=== PATIENT | male | born 1990 | race Caucasian/White ===

== ENCOUNTER 2025-05-02 09:13 | Emergency (ER) | payer BC ==
[2025-05-02] MEDS: Ketorolac 30 MG/ML SDV IVPUSH ONE ×2 (09:34→11:04)
[2025-05-02 09:38] LABS: HEMATOCRIT 50.9 % (40.0-54.0); HEMOGLOBIN 17.8 g/dL (14.0-18.0); LYMPHOCYTES PERCENT AUTO 12.1 % (20.5-50.1); MEAN CORPUSCULAR HEMOGLOBIN 29.9 pg (27.0-34.0); MEAN CORPUSCULAR VOLUME 85.5 fL (80-100); NEUTROPHILS PERCENT AUTO 80.7 % (42.2-75.2); PLATELET COUNT,PLT 271 10^3/uL (150-450); RED BLOOD CELL COUNT 5.95 10^6/uL (4.6-6.2); WHITE BLOOD CELL COUNT,WBC 13.9 10^3/uL (5.0-10.0)
[2025-05-02 09:39] LABS: BASOPHILS PERCENT AUTO 0.6 % (0.0-1.0); EOSINOPHILS PERCENT AUTO 0.4 % (1.0-3.0); MONOCYTES PERCENT AUTO 6.2 % (2-8)
[2025-05-02 09:52] LABS: ANION GAP 12.9 mEq/L (7-13); CALCIUM 9.6 mg/dL (8.5-10.1); CREATININE 1.16 mg/dL (0.70-1.30); EST CRCL DRUG DOSING (CG) 96.47 mL/min; POTASSIUM,K 3.9 mmol/L (3.5-5.1)
[2025-05-02] MEDS ORDERED: Naloxone 2 MG/2 ML Syringe IVPUSH PRN (09:58)
[2025-05-02 10:00] LABS: BAND PERCENT MAN 6 %; LYMPHOCYTES PERCENT MAN 15 % (20-50); MONOCYTES PERCENT MAN 6 % (2-8); SEG NEUTROPHILS PERCENT MAN 73 % (42-75)
[2025-05-02] MEDS: HYDROmorphone 1 MG/ML Syringe IVPUSH ONE (10:03)
[2025-05-02] MEDS: Iopamidol 612 MG/ML 100 ML Bottle IVPUSH ONE (10:04)
== END 2025-05-02 11:20 ==
LOC: DL.ED 09:13
DX: K56.609 Unspecified intestinal obstruction, unspecified as to partial versus complete obstruction (principal); K46.0 Unspecified abdominal hernia with obstruction, without gangrene
CPT/HCPCS: 36415; 74177; 80048; 83605; 85025; 96374; 96375; 96376; 99285; J1171; J1885; Q9967

== ENCOUNTER 2025-06-15 11:08 | Emergency (ER) | payer BC ==
[2025-06-15] MEDS: Ketorolac 30 MG/ML SDV IM ONE (11:26)
[2025-06-15 11:42] LABS: PLATELET COUNT,PLT 263 10^3/uL (150-450); RED BLOOD CELL COUNT 5.62 10^6/uL (4.6-6.2); WHITE BLOOD CELL COUNT,WBC 9.5 10^3/uL (5.0-10.0)
[2025-06-15 11:54] LABS: BASOPHILS PERCENT AUTO 0.5 % (0.0-1.0); EOSINOPHILS PERCENT AUTO 1.6 % (1.0-3.0); LYMPHOCYTES PERCENT AUTO 19.7 % (20.5-50.1); MONOCYTES PERCENT AUTO 9.3 % (2-8); NEUTROPHILS PERCENT AUTO 68.9 % (42.2-75.2)
[2025-06-15 12:02] LABS: EOSINOPHILS PERCENT MAN 1 % (1-3); LYMPHOCYTES PERCENT MAN 21 % (20-50); MONOCYTES PERCENT MAN 3 % (2-8); SEG NEUTROPHILS PERCENT MAN 75 % (42-75)
[2025-06-15 12:03] LABS: A/G RATIO 1.4; ALANINE AMINOTRANSFERASE,ALT 51.0 U/L (16-63); ASPARTATE AMNIOTRANSFERASE,AST 23.0 U/L (15-37); BILIRUBIN TOTAL 0.6 mg/dL (0.2-1.0); BLOOD UREA NITROGEN,BUN 12.0 mg/dL (7-18); CARBON DIOXIDE,CO2 32.0 mmol/L (21-32); CHLORIDE,CL 103.0 mmol/L (98-107); CREATININE 1.07 mg/dL (0.70-1.30); EST CRCL DRUG DOSING (CG) 104.58 mL/min; GLUCOSE RANDOM 94.0 mg/dL (70-99); POTASSIUM,K 4.5 mmol/L (3.5-5.1); PROTEIN TOTAL,TP 7.8 g/dL (6.4-8.2); SODIUM,NA 142.0 mmol/L (136-145)
[2025-06-15 12:04] LABS: ESTIMATED GFR 94.0 mL/min (>=60)
[2025-06-15 12:07] LABS: INR 1.0 (0.9-1.2); PTT,PARTIAL THROMBOPLSTIN TIME 28.3 SEC (22.0-34.0)
[2025-06-15 12:09] LABS: D-DIMER QUANTITATIVE < 100 ng/mL (0-400)
[2025-06-15 12:20] LABS: APPEARANCE,URINE CLEAR (CLEAR); GLUCOSE,URINE NEGATIVE (NEGATIVE); OCCULT BLOOD,URINE NEGATIVE (NEGATIVE)
[2025-06-15 12:46] LABS: EPITHELIAL CELLS,URINE RARE /HPF (NOT SEEN)
== END 2025-06-15 13:06 | disposition home or self-care (01) ==
LOC: DL.ED 11:08
DX: R07.81 Pleurodynia (principal); Z87.442 Personal history of urinary calculi
CPT/HCPCS: 36415; 71046; 80053; 81001; 84484; 85025; 85379; 85610; 85730; 86140; 96372; 99283; 99284; J1885